=== PATIENT | female | born 1965 | race Caucasian/White ===

== ENCOUNTER 2017-08-01 19:25 | Emergency (ER) | payer OTHER ==
--- NOTE | 2017-08-01 20:46 | RAD REPORT ---
EXAM DESCRIPTION: CT - Head C Spine Mpr Wo Con - 08/01/2017 8:31 pm CLINICAL HISTORY: Head and neck injury status post fall. Head and neck pain COMPARISON: None. TECHNIQUE: Computed axial tomography of the head and cervical spine was obtained. Sagittal and coronal reconstruction was performed. All CT scans are performed using dose optimization technique as appropriate and may include automated exposure control or mA/KV adjustment according to patient size. FINDINGS: An intracranial bleed is not seen. The ventricles are normal in caliber. An extra-axial fl uid collection is not noted.Fluid within the visualized sinuses and mastoids is not seen A cervical fracture is not visualized. No dislocation is noted. IMPRESSION: No acute intracranial abnormality is seen. A cervical fracture is not visualized. If the patient continues to have symptoms to suggest intracra nial /spinal cord pathology then MRI would be recommended
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
[2017-08-01 21:13] VITALS: TEMP 98.2
[2017-08-01 21:14] VITALS: BP 120/93; O2SAT 100
== END 2017-08-01 21:07 | disposition home or self-care (01) ==
LOC: ER 19:25
DX: S06.0X0A Concussion without loss of consciousness, initial encounter (principal); W19.XXXA Unspecified fall, initial encounter; Y93.89 Activity, other specified; Y92.9 Unspecified place or not applicable; E06.3 Autoimmune thyroiditis
CPT/HCPCS: 70450; 72125; 99284

== ENCOUNTER 2017-09-11 08:37 | Emergency (ER) | payer OTHER ==
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
--- NOTE | 2017-09-11 09:04 | EDPHYS ---
Physician Documentation [facility] Name: Mary Bentley Age: 51 yrs Sex: Female : 1965 Arrival Date: 09/11/2017 Time: 08:40 Bed 14 Private MD: out of town, doctor ED Physician Bairon Moses HPI: 09/11 08:58 This 51 yrs old Female presents to ER via Ambulatory with complaints of rn Headache. 08:58 The patient complains of pain to the forehead. The patient describes the headache as rn electric. Onset: The symptoms/episode began/occurred 1 month(s) ago. Associated signs and symptoms: Pertinent negatives: fever, neck stiffness, rash, vision changes, vision loss, vomiting, weakness, vertigo. Severity of symptoms: At its worst the pain was mild, in the emergency department the pain is unchanged. The patient has experienced similar episodes in the past. REports had head injury 5 weeks ago, told had concussion, has been having daily electrical sensation to right forehead, is location where she hit her head, doesn't feel deep, hurts to touch location. No focal neurological complaints.. 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 - Social history:: Smoking status: Patient/guardian denies using tobacco. - Ebola Screening: : Patient denies exposure to infectious person Patient denies travel to an Ebola-affected area in the 21 days before illness onset. - Family history:: not pertinent. - Hospitalizations: : No recent hospitalization is reported. ROS: 08:58 Constitutional: Negative for fever, chills, and weight loss, Eyes: Negative for injury, rn pain, redness, and discharge, Neck: Negative for injury, pain, and swelling, Cardiovascular: Negative for chest pain, palpitations, and edema, Respiratory: Negative for shortness of breath, cough, wheezing, and pleuritic chest pain, Abdomen/GI: Negative for abdominal pain, nausea, vomiting, diarrhea, and constipation, MS/Extremity: Negative for injury and deformity, Skin: Negative for injury, rash, and discoloration, Neuro: Negative for weakness, and seizure. Exam: 08:58 Constitutional: This is a well developed, well nourished patient who is awake, alert, rn and in no acute distress. Head/Face: Normocephalic, atraumatic. Eyes: Pupils equal round and reactive to light, extra-ocular motions intact. Lids and lashes normal. Conjunctiva and sclera are non-icteric and not injected. Cornea within normal limits. Periorbital areas with no swelling, redness, or edema. ENT: No facial abnormalities Neck: Trachea midline, no thyromegaly or masses palpated, and no cervical lymphadenopathy. Supple, full range of motion without nuchal rigidity, or vertebral point tenderness. No Meningismus. Skin: Warm, dry with normal turgor. Normal color with no rashes, no lesions, and no evidence of cellulitis. MS/ Extremity: Pulses equal, no cyanosis. Neurovascular intact. Full, normal range of motion. Equal circumference. Neuro: Awake and alert, GCS 15, oriented to person, place, time, and situation. Cranial nerves II-XII grossly intact. Motor strength 5/5 in all extremities. Sensory grossly intact. Cerebellar exam normal. Normal gait. Vital Signs: 08:52 BP 125 / 90; Pulse 79; Resp 16; Temp 98.7(O); Pulse Ox 99% on R/A; Weight 84.82 kg; ss Height 5 ft. 1 in. (154.94 cm); Pain 7/10; 08:52 Body Mass Index 35.33 (84.82 kg, 154.94 cm) ss Ramakrishna Coma Score: 09:02 Eye Response: spontaneous(4). Verbal Response: oriented(5). Motor Response: obeys rn commands(6). Total: 15. MDM: 08:43 Patient medically screened. rn 08:58 Differential diagnosis: migraine, post-concussive syndrome, neuropraxia. Data reviewed: rn vital signs, nurses notes, old medical records, and as a result, I will discharge patient. 09:02 Counseling: I had a detailed discussion with the patient and/or guardian regarding: the rn historical points, exam findings, and any diagnostic results supporting the discharge/admit diagnosis, the need for outpatient follow up, to return to the emergency department if symptoms worsen or persist or if there are any questions or concerns that arise at home. Special discussion: I discussed with the patient/guardian in detail that at this point there is no indication for admission to the hospital. It is understood, however, that if the symptoms persist or worsen the patient needs to return immediately for re-evaluation. ED course: NOrmal neuro exam, no need for emergent imaging at this time, still within window of post-concussive syndrome, feels more like scalp hurts, electrical sensation, possible neuropraxia, will dc home with steroids and neuro f/u if persists. . Administered Medications: No medications were administered Disposition: 09/11/17 09:03 Discharged to Home. Impression: Postconcussional syndrome. - Condition is Stable. - Discharge Instructions: Post-Concussion Syndrome. - Prescriptions for Medrol (Genaro) 4 mg Oral Tablets, Dose Pack - take 1 tablet by ORAL route as directed - follow package instructions; 1 packet. - Medication Reconciliation Form, Thank You Letter, Antibiotic Education, Prescription Opioid Use, Work release form form. - Follow up: Wade Del Toro MD; When: As needed; Reason: Recheck today's complaints, Re-evaluation by your physician. - Problem is an ongoing problem. - Symptoms are unchanged. Signatures: Bairon Moses MD MD rn Smirch, Shelby, RN RN ss Barber, Rebecca, RN RN rb1 Corrections: (The following items were deleted from the chart) 09:13 09:03 09/11/2017 09:03 Discharged to Home. Impression: Postconcussional syndrome. rb1 Condition is Stable. Forms are Medication Reconciliation Form, Thank You Letter, Antibiotic Education, Prescription Opioid Use. Follow up: Wade Del Toro; When: As needed; Reason: Recheck today's complaints, Re-evaluation by your physician. Problem is an ongoing problem. Symptoms are unchanged. rn
[2017-09-11 09:17] VITALS: BP 125/90; TEMP 98.7; O2SAT 99
== END 2017-09-11 09:13 | disposition home or self-care (01) ==
LOC: ER 08:37
DX: F07.81 Postconcussional syndrome (principal); E06.3 Autoimmune thyroiditis
CPT/HCPCS: 99283

== ENCOUNTER 2018-08-07 22:09 | Emergency (ER) | payer OTHER ==
--- OUTSIDE RECORDS SUMMARY | 2018-08-07 22:11 | XMS REPORT | Clinical Summary ---
:1965 Author Organization [facility] Address [address] [place] [address] Care Team Providers Name Role Phone Chalino Heller MD Primary Care Provider Allergies No Known Allergies Medications Medication Sig Dispensed Refills Start Date End Date Status ARMOUR THYROID 30 mg TAKE 4 TABLETS BY 5 03/15/2016 Active tablet MOUTH ONCE A DAY Active Problems Problem Noted Date Chronic pain of right knee 11/14/2017 Old complete tear of anterior cruciate ligament of right knee 11/14/2017 Encounters Date Type Specialty Care Team Description 12/31/2017 Telephone Sports Medicine Alice Schneider MA 12/10/2017 Office Visit Sports Medicine Chalino Heller Chronic pain of right knee (Primary Dx); MD Joseluis Primary localized osteoarthrosis of right lower leg; Old complete tear of anterior cruciate ligament of right knee 12/05/2017 Telephone Sports Medicine Alice Schneider MA 11/23/2017 Office Visit Sports Medicine Chalino Heller Chronic pain of right knee MD Joseluis (Primary Dx) 11/23/2017 Telephone Sports Medicine Alex Johnson MA 11/14/2017 Office Visit Sports Medicine Chalino Heller Chronic pain of right knee (Primary Dx); MD Joseluis Old complete tear of anterior cruciate ligament of right knee; Post-traumatic osteoarthritis of right knee after 08/06/2017 Social History Tobacco Use Types Packs/Day Years Used Date Never Smoker Smokeless Tobacco: Never Used Alcohol Use Drinks/Week oz/Week Comments No Sex Assigned at Date Recorded Not on file Job Start Date Occupation Industry Not on file Not on file Not on file Travel History Travel Start Travel End No recent travel history available. Last Filed Vital Signs Vital Sign Reading Time Taken Blood Pressure 142/104 11/14/2017 2:12 PM CDT Pulse 81 11/14/2017 2:12 PM CDT Temperature - - Respiratory Rate 20 11/14/2017 2:12 PM CDT Oxygen Saturation - - Inhaled Oxygen Concentration - - Weight 86.6 kg (191 lb) 12/10/2017 2:10 PM CDT Height 154.9 cm (5' 1") 12/10/2017 2:10 PM CDT Body Mass Index 36.09 12/10/2017 2:10 PM CDT Plan of Treatment Health Maintenance Due Date Last Done Comments BREAST CANCER SCREENING 12/26/2013 COLON CANCER SCREENING 12/26/2013 SHINGLES VACCINES (#1) 12/26/2013 INFLUENZA VACCINE 10/03/2018 Procedures Procedure Name Priority Date/Time Associated Comments Diagnosis ID ARTHROCENTESIS Routine 11/23/2017 8:10 Chronic pain of Results for this ASPIR&/INJ MAJOR AM CDT right knee procedure are in JT/BURSA W/US the results section. XR KNEE 4+ VW RIGHT Routine 11/14/2017 3:31 Chronic pain of Results for this PM CDT right knee procedure are in Old complete tear the results of anterior section. cruciate ligament of right knee after 08/06/2017 Results Large Joint Arthrocentesis (11/23/2017 8:10 AM CDT) Narrative Performed At Chalino Heller MD 11/23/20178:35 AM Large Joint Arthrocentesis Consent given by: patient Site marked: site marked Timeout: Immediately prior to procedure a time out was called to verify the correct patient, procedure, equipment, lab support technician and site/side marked as required Supporting Documentation Indications: pain Procedure Details Preparation: Patient was prepped and draped in the usual sterile fashion Ultrasound guided: yes Location: knee - R knee Right side: Approach: lateral Right knee medications administered: 80 mg methylPREDNISolone acetate 40 mg/mL Patient tolerance: patient tolerated the procedure well with no immediate complications XR Knee 4+ Vw Right (11/14/2017 3:31 PM CDT) Specimen Narrative Performed At 4 view series of the right knee demonstrates grade 3 OA of the medial and [facility] lateral compartments, and grade 2 OA changes of the patellofemoral compartment. Performing Organization Address City/State/Zipcode Phone Number [facility] [address] [place] [address] after 08/06/2017 Advance Directives Patient has advance care planning documents on file. For more information, please contact:Raj [id number] [place] [address]
[2018-08-07] MEDS ORDERED: KETOROLAC 30 MG/ML INJ ONE (23:39)
[2018-08-07] MEDS ORDERED: CYCLOBENZAPRINE 10 MG TAB ONE (23:39)
--- NOTE | 2018-08-07 23:44 | EDPHYS ---
Physician Documentation [facility] Name: Mary Bentley Age: 52 yrs Sex: Female : 1965 Arrival Date: 08/07/2018 Time: 22:19 Bed 16 Private MD: ED Physician Lobito Canseco HPI: 08/08 01:55 This 52 yrs old Female presents to ER via Ambulatory with complaints of Neck tw4 Injury. 01:55 This 52 yrs old Female presents to ER via Ambulatory with complaints of Neck tw4 Injury. 01:55 The patient or guardian complains of pain, that is acute. The symptoms are located. tw4 Onset: The symptoms/episode began/occurred today. Context: The problem was sustained at home, The neck injury/problem resulted from a direct blow. Associated signs and symptoms: The patient has no apparent associated signs or symptoms. The pain does not radiate. The patient has not experienced similar symptoms in the past. 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 - Social history:: Smoking status: Patient/guardian denies using tobacco, Patient uses alcohol, occasionally. - Ebola Screening: : Patient negative for fever greater than or equal to 101.5 degrees Fahrenheit, and additional compatible Ebola Virus Disease symptoms Patient denies exposure to infectious person Patient denies travel to an Ebola-affected area in the 21 days before illness onset. ROS: 08/08 01:55 Constitutional: Negative for fever, chills, and weight loss, Eyes: Negative for injury, tw4 pain, redness, and discharge. Cardiovascular: Negative for chest pain, palpitations, and edema, Respiratory: Negative for shortness of breath, cough, wheezing, and pleuritic chest pain, Abdomen/GI: Negative for abdominal pain, nausea, vomiting, diarrhea, and constipation, Back: Negative for injury and pain, MS/Extremity: Negative for injury and deformity, Skin: Negative for injury, rash, and discoloration. Neck: Positive for injury or acute deformity, pain at rest, stiffness, Negative for mass. Exam: 01:55 Constitutional: This is a well developed, well nourished patient who is awake, alert, tw4 and in no acute distress. Head/Face: Normocephalic, atraumatic. Eyes: Pupils equal round and reactive to light, extra-ocular motions intact. Lids and lashes normal. Conjunctiva and sclera are non-icteric and not injected. Cornea within normal limits. Periorbital areas with no swelling, redness, or edema. Chest/axilla: Normal chest wall appearance and motion. Nontender with no deformity. No lesions are appreciated. Cardiovascular: Regular rate and rhythm with a normal S1 and S2. No gallops, murmurs, or rubs. Normal PMI, no JVD. No pulse deficits. Respiratory: Lungs have equal breath sounds bilaterally, clear to auscultation and percussion. No rales, rhonchi or wheezes noted. No increased work of breathing, no retractions or nasal flaring. 01:55 Abdomen/GI: Soft, non-tender, with normal bowel sounds. No distension or tympany. No guarding or rebound. No evidence of tenderness throughout. MS/ Extremity: Pulses equal, no cyanosis. Neurovascular intact. Full, normal range of motion. 01:55 Neck: External neck: tenderness, that is mild, of the left mid cervical area, right mid cervical area, left trapezius and right trapezius, C-spine: appears grossly normal. Vital Signs: 08/07 22:15 BP 130 / 96; Pulse 71; Resp 18; Temp 98.8(O); Pulse Ox 98% on R/A; Weight 90.72 kg (R); fc Height 5 ft. 1 in. (154.94 cm) (R); Pain 5/10; 23:38 Pulse 58; Resp 16 S; Pulse Ox 100% on R/A; jd3 23:55 BP 144 / 92; Pulse 63; Resp 16 S; Pulse Ox 99% on R/A; jd3 22:15 Body Mass Index 37.79 (90.72 kg, 154.94 cm) [place] Coma Score: 22:15 Eye Response: spontaneous(4). Verbal Response: oriented(5). Motor Response: obeys fc commands(6). Total: 15. Trauma Score (Adult): 22:15 Eye Response: spontaneous(1); Verbal Response: oriented(1); Motor Response: obeys fc commands(2); Systolic BP: > 89 mm Hg(4); Respiratory Rate: 10 to 29 per min(4); Ramakrishna Score: 15; Trauma Score: 12 MDM: 22:36 Patient medically screened. tw4 08/08 01:55 Data reviewed: vital signs, nurses notes. Data interpreted: Pulse oximetry: tw4 Interpretation: normal. Counseling: I had a detailed discussion with the patient and/or guardian regarding: the historical points, exam findings, and any diagnostic results supporting the discharge/admit diagnosis. Medication response: Toradol markedly relieved the patient's pain. Response to treatment: and as a result, I will discharge patient. Special discussion: I discussed with the patient/guardian in detail that at this point there is no indication for admission to the hospital. It is understood, however, that if the symptoms persist or worsen the patient needs to return immediately for re-evaluation. Administered Medications: 08/07 23:29 Drug: TORadol 60 mg Route: IM; Site: left gluteus; jd3 23:50 Follow up: Response: No adverse reaction jd3 23:29 Not Given (Other Intervention Used): Flexeril 15 mg PO once jd3 23:29 Drug: Flexeril 10 mg Route: PO; jd3 23:50 Follow up: Response: No adverse reaction jd3 Disposition: 08/07/18 23:43 Discharged to Home. Impression: Contusion of unspecified part of neck, Muscle spasm. - Condition is Stable. - Discharge Instructions: Neck Contusion, Cervical Sprain. - Prescriptions for Ibuprofen 800 mg Oral Tablet - take 1 tablet by ORAL route every 8 hours As needed take with food; 30 tablet. Cyclobenzaprine 10 mg Oral Tablet - take 1 tablet by ORAL route every 8 hours As needed; 30 tablet. - Medication Reconciliation Form, Thank You Letter, Antibiotic Education, Prescription Opioid Use form. - Follow up: Private Physician; When: Upon discharge from the Emergency Department; Reason: If symptoms return, Recheck today's complaints, Continuance of care. Signatures: Lenora Greenfield RN RN Wale Scott RN RN j Lobito Canseco MD MD tw4 Corrections: (The following items were deleted from the chart) 23:55 23:43 08/07/2018 23:43 Discharged to Home. Impression: Contusion of unspecified part of jd3 neck; Muscle spasm. Condition is Stable. Forms are Medication Reconciliation Form, Thank You Letter, Antibiotic Education, Prescription Opioid Use. Follow up: Private Physician; When: Upon discharge from the Emergency Department; Reason: If symptoms return, Recheck today's complaints, Continuance of care. tw4
--- NOTE | 2018-08-07 23:44 | ER ---
Nurse's Notes [facility] Name: Mary Bentley Age: 52 yrs Sex: Female : 1965 Arrival Date: 08/07/2018 Time: 22:19 Bed 16 Private MD: Diagnosis: Contusion of unspecified part of neck;Muscle spasm Presentation: 08/07 22:15 Presenting complaint: Patient states: that she was looking at some water on the ground fc that was leaking in her home and the ceiling fell in on her, hitting her in the neck. She is now light headed. Denies any LOC, nausea or photophobia. Care prior to arrival: None. Trauma event details: Injury occurred in the [facility], Injury occurred: at home. Injury occurred: August 07, 2018. 22:15 Acuity: SKIP 3 fc 22:15 Method Of Arrival: Ambulatory fc 22:15 Transition of care: patient was not received from another setting of care. Onset of fc symptoms was August 07, 2018. Risk Assessment: Do you want to hurt yourself or someone else? Patient reports no desire to harm self or others. Initial Sepsis Screen: Does the patient meet any 2 criteria? No. Patient's initial sepsis screen is negative. Does the patient have a suspected source of infection? No. Patient's initial sepsis screen is negative. 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 - Social history:: Smoking status: Patient/guardian denies using tobacco, Patient uses alcohol, occasionally. - Ebola Screening: : Patient negative for fever greater than or equal to 101.5 degrees Fahrenheit, and additional compatible Ebola Virus Disease symptoms Patient denies exposure to infectious person Patient denies travel to an Ebola-affected area in the 21 days before illness onset. Screenin:15 Abuse screen: Denies threats or abuse. Tuberculosis screening: No symptoms or risk fc factors identified. 22:36 Nutritional screening: No deficits noted. Fall Risk Ambulatory Aid- None/Bed Rest/Nurse jd3 Assist (0 pts). Gait- Normal/Bed Rest/Wheelchair (0 pts) Mental Status- Oriented to own ability (0 pts). Total Pyle Fall Scale indicates No Risk (0-24 pts). Assessment: 22:28 General: Appears in no apparent distress. uncomfortable, Behavior is calm, cooperative, jd3 appropriate for age. Pain: Complains of pain in head and back of neck Quality of pain is described as aching, pressure. Neuro: Level of Consciousness is awake, alert, obeys commands, Oriented to person, place, time, situation, Pupils are PERRLA, Reports dizziness. Cardiovascular: Capillary refill < 3 seconds Patient's skin is warm and dry. Respiratory: Airway is patent Respiratory effort is even, unlabored, Respiratory pattern is regular, symmetrical. GI: No signs and/or symptoms were reported involving the gastrointestinal system. : No signs and/or symptoms were reported regarding the genitourinary system. EENT: No signs and/or symptoms were reported regarding the EENT system. Derm: Skin is intact, Skin is dry, Skin is normal, Skin temperature is warm. Musculoskeletal: Circulation, motion, and sensation intact. Range of motion: intact in all extremities. 23:38 Reassessment: Patient appears in no apparent distress at this time. Patient and/or jd3 family updated on plan of care and expected duration. Pain level reassessed. Patient is alert, oriented x 3, equal unlabored respirations, skin warm/dry/pink. 23:54 Reassessment: Patient appears in no apparent distress at this time. Patient and/or jd3 family updated on plan of care and expected duration. Pain level reassessed. Patient is alert, oriented x 3, equal unlabored respirations, skin warm/dry/pink. Vital Signs: 22:15 BP 130 / 96; Pulse 71; Resp 18; Temp 98.8(O); Pulse Ox 98% on R/A; Weight 90.72 kg (R); fc Height 5 ft. 1 in. (154.94 cm) (R); Pain 5/10; 23:38 Pulse 58; Resp 16 S; Pulse Ox 100% on R/A; jd3 23:55 BP 144 / 92; Pulse 63; Resp 16 S; Pulse Ox 99% on R/A; jd3 22:15 Body Mass Index 37.79 (90.72 kg, 154.94 cm) Ramakrishna Coma Score: 22:15 Eye Response: spontaneous(4). Verbal Response: oriented(5). Motor Response: obeys fc commands(6). Total: 15. Trauma Score (Adult): 22:15 Eye Response: spontaneous(1); Verbal Response: oriented(1); Motor Response: obeys fc commands(2); Systolic BP: > 89 mm Hg(4); Respiratory Rate: 10 to 29 per min(4); [place] Score: 15; Trauma Score: 12 ED Course: 22:15 Patient has correct armband on for positive identification. Bed in low position. Call fc light in reach. 22:15 Arm band placed on Patient placed in an exam room, on a stretcher. fc 22:15 Patient maintains SpO2 saturation greater than 95% on room air. fc 22:19 Patient arrived in ED. mr 22:22 Wale Scott RN is Primary Nurse. jd3 22:29 Triage completed. 22:36 Lobito Canseco MD is Attending Physician. tw4 23:55 No provider procedures requiring assistance completed. Patient did not have IV access jd3 during this emergency room visit. Administered Medications: 23:29 Drug: TORadol 60 mg Route: IM; Site: left gluteus; jd3 23:50 Follow up: Response: No adverse reaction jd3 23:29 Not Given (Other Intervention Used): Flexeril 15 mg PO once jd3 23:29 Drug: Flexeril 10 mg Route: PO; jd3 23:50 Follow up: Response: No adverse reaction jd3 Outcome: 23:43 Discharge ordered by . tw4 23:55 Discharged to home ambulatory, with family. jd3 23:55 Condition: stable 23:55 Discharge instructions given to patient, family, Instructed on discharge instructions, follow up and referral plans. medication usage, Demonstrated understanding of instructions, follow-up care, medications, Prescriptions given X 2. 23:55 Patient left the ED. jd3 Signatures: GutierrezShannan mr GreenfieldLenora RN RN Wale Scott RN RN [facility] Lobito Canseco MD MD tw4 Corrections: (The following items were deleted from the chart) 22:39 22:36 BP 118 / 70; Pulse 83bpm; Resp 15bpm; Spontaneous; Pulse Ox 99% RA; jd3 jd3 23:39 23:38 BP 128 / 92; Pulse 58bpm; Pulse Ox 100%; jd3 jd3 23:55 23:38 BP 128 / 88; Pulse 58bpm; Resp 16bpm; Spontaneous; Pulse Ox 100% RA; jd3 jd3
[2018-08-08 02:34] VITALS: TEMP 98.8
[2018-08-08 02:37] VITALS: BP 144/92; O2SAT 99
== END 2018-08-07 23:55 | disposition home or self-care (01) ==
LOC: ER 22:09
DX: S10.93XA Contusion of unspecified part of neck, initial encounter (principal); M62.838 Other muscle spasm; E06.3 Autoimmune thyroiditis
CPT/HCPCS: 96372; 99284

== ENCOUNTER 2020-08-26 14:39 | Emergency (ER) | payer OTHER, SELFPAY ==
[2020-08-26 17:27] LABS: Absolute Lymphocytes (CBC) 3.4 K/uL (0.7-4.9); Hematocrit 39.3 % (36.0-45.0); Lymphocytes % 50.7 % (15.3-44.8); MPV 7.9 fL (7.6-11.3); RBC Red Blood Cell Count 4.37 M/uL (3.86-4.86)
[2020-08-26 17:41] LABS: Albumin 3.4 g/dL (3.4-5.0); Bilirubin Direct 0.1 mg/dL (0-0.2); Bilirubin Total 0.5 mg/dL (0.2-1.0); Potassium 3.4 mmol/L (3.5-5.1); Protein, Total 6.9 g/dL (6.4-8.2)
--- NOTE | 2020-08-26 18:44 | RAD REPORT ---
EXAM DESCRIPTION: CT - Abdomen Pelvis W Contrast - 08/26/2020 6:17 pm CLINICAL HISTORY: abdominal pain COMPARISON: Abdomen Pelvis W Contrast dated 09/03/2015 TECHNIQUE: Biphasic, helical CT imaging of the abdomen and pelvis was performed following 100 ml non -ionic IV contrast. No oral contrast administered. All CT scans are performed using dose optimization technique as appropriate and may include automated exposure control or mA/KV adjustment according to patient size. FINDINGS: No suspicious findings in the lung bases. The liver, spleen, and pancreas show no suspicious findings. Cholecystectomy clips are present. No bi liary tree dilatation. Symmetric renal function is seen with no hydronephrosis or suspicious renal mass. No pyelonephritis o r acute parenchymal process. No bladder abnormalities. No adrenal abnormalities. Uterus and ovaries s how no suspicious findings. No dilated bowel loops or bowel wall thickening. No appendicitis findings. There is prominent sigmoid diverticulosis without diverticulitis. A few small mesenteric lymph nodes are present. No free air, free fluid or inflammatory stranding. No hernia, mass or bulky lymphadenopathy. No suspicious bony findings. IMPRESSION: Contrast enhanced CT abdomen and pelvis showing no acute or emergent finding.
--- NOTE | 2020-08-26 19:50 | ER ---
Nurse's Notes [facility] Name: Mary Bentley Age: 54 yrs Sex: Female : 1965 Arrival Date: 08/26/2020 Time: 14:43 Bed 25 Private MD: Diagnosis: Gastrointestinal hemorrhage, unspecified Presentation: 08/26 14:58 Chief complaint: Patient states: "I am having some rectal bleeding with bowel moments. jd3 I am started feeling fatigue so I figured I needed to come in and get seen. no pain.". Coronavirus screen: At this time, the client does not indicate any symptoms associated with coronavirus-19. Ebola Screen: Patient negative for fever greater than or equal to 101.5 degrees Fahrenheit, and additional compatible Ebola Virus Disease symptoms. Initial Sepsis Screen: Does the patient meet any 2 criteria? No. Patient's initial sepsis screen is negative. Does the patient have a suspected source of infection? No. Patient's initial sepsis screen is negative. Risk Assessment: Do you want to hurt yourself or someone else? Patient reports no desire to harm self or others. Onset of symptoms was August 26, 2020. 14:58 Method Of Arrival: Ambulatory jd3 14:58 Acuity: SKPI 3 jd3 Historical: - Allergies: 15:00 No Known Allergies; jd3 - Home Meds: 15:00 [place] Thyroid Oral daily [Active]; jd3 - PMHx: 15:00 Hashimotos; jd3 - PSHx: 15:00 spinal; knee; gastric sleeve; Cholecystectomy; jd3 - Immunization history:: Adult Immunizations. - Social history:: Smoking status: Patient/guardian denies using tobacco, but has a distant history of tobacco abuse. Screenin:33 Abuse screen: Denies threats or abuse. Denies injuries from another. Nutritional ld1 screening: No deficits noted. Tuberculosis screening: No symptoms or risk factors identified. Fall Risk None identified. Assessment: 16:33 General: Appears in no apparent distress. comfortable, Behavior is calm, cooperative, ld1 appropriate for age. Pain: Denies pain. Neuro: Level of Consciousness is awake, alert, obeys commands, Oriented to person, place, time, situation, Appropriate for age. Cardiovascular: Capillary refill < 3 seconds Patient's skin is warm and dry. Respiratory: Airway is patent Respiratory effort is even, unlabored, Respiratory pattern is regular, symmetrical. GI: Abdomen is round non-distended, Bowel sounds present X 4 quads. Abd is soft Abd is non tender Reports rectal bleeding, bloody stool. : No signs and/or symptoms were reported regarding the genitourinary system. EENT: No signs and/or symptoms were reported regarding the EENT system. Derm: No signs and/or symptoms reported regarding the dermatologic system. Musculoskeletal: No signs and/or symptoms reported regarding the musculoskeletal system. 17:30 Reassessment: Patient appears in no apparent distress at this time. Patient denies pain ld1 at this time. 18:30 Reassessment: Patient appears in no apparent distress at this time. Patient is alert, ld1 oriented x 3, equal unlabored respirations, skin warm/dry/pink. 19:44 Reassessment: Patient appears in no apparent distress at this time. Patient and/or ld1 family updated on plan of care and expected duration. Pain level reassessed. Patient denies pain at this time. 20:04 Reassessment:. ld1 Vital Signs: 15:00 BP 120 / 91; Pulse 72; Resp 16 S; Temp 97.2(TE); Pulse Ox 99% on R/A; Weight 73.03 kg jd3 (R); Height 5 ft. 1 in. (154.94 cm) (R); Pain 2/10; 16:33 BP 127 / 79; Pulse 78; Resp 18; Pulse Ox 97% on R/A; ld1 17:50 BP 130 / 82; Pulse 79; Resp 16; Pulse Ox 100% ; ld1 18:45 BP 134 / 80; Pulse 74; Resp 18; Pulse Ox 100% ; ld1 19:45 BP 128 / 76; Pulse 70; Resp 18; Pulse Ox 100% ; ld1 15:00 Body Mass Index 30.42 (73.03 kg, 154.94 cm) j ED Course: 14:43 Patient arrived in ED. mr 14:59 Triage completed. jd3 15:01 Arm band placed on. jd3 16:09 Telly Mcleod PA is PHCP. [facility] 16:09 Jeevan Herbert MD is Attending Physician. [facility] 16:33 Zandra Kyle, JOSEFA is Primary Nurse. ld1 16:33 Patient has correct armband on for positive identification. Placed in gown. Bed in low ld1 position. Side rails up X2. Pulse ox on. NIBP on. Door closed. Noise minimized. Warm blanket given. 16:33 No provider procedures requiring assistance completed. ld1 16:45 Inserted saline lock: 20 gauge in right antecubital area, using aseptic technique. ld1 Blood collected. 18:16 CT Abd/Pelvis - IV Contrast Only In Process Unspecified. EDMS 19:48 Maty Munoz MD is Referral Physician. [facility] 20:09 IV discontinued, intact, bleeding controlled, No redness/swelling at site. ld1 Administered Medications: No medications were administered Outcome: 19:49 Discharge ordered by . devon 20:09 Discharged to home ambulatory. ld1 20:09 Condition: stable 20:09 Discharge instructions given to patient, family, Instructed on discharge instructions, follow up and referral plans. Demonstrated understanding of instructions, follow-up care. 20:09 Patient left the ED. ld1 Signatures: Dispatcher [employer] EDMS Telly Mcleod PA PA jmm Rivera, Mary mr ScottWale RN RN jZandra Ashford RN RN ld1 Corrections: (The following items were deleted from the chart) 15:02 15:00 Pulse 72bpm; Resp 16bpm; Spontaneous; Pulse Ox 99% RA; Temp 97.2F Temporal; 73.03 jd3 kg Reported; Height 5 ft. 1 in. Reported; BMI: 30.4; Pain 2/10; jd3
--- NOTE | 2020-08-26 19:50 | EDPHYS ---
Physician Documentation [facility] Name: Mary Bentley Age: 54 yrs Sex: Female : 1965 Arrival Date: 08/26/2020 Time: 14:43 Bed 25 Private MD: ED Physician Jeevan Herbert HPI: 08/26 16:14 This 54 yrs old Female presents to ER via Ambulatory with complaints of jmm Rectal Bleeding, fatigue. 16:14 The patient presents to the emergency department with bleeding from the rectum/anus. jmm Onset: The symptoms/episode began/occurred gradually. Modifying factors: The symptoms are alleviated by nothing, The symptoms are aggravated by nothing. This is a 54 year old with a history of hashimotos, gastric sleeve that presents to the ED with complaints of fatigue and rectal bleeding. Denies abdominal pain, vomiting. . Historical: - Allergies: 15:00 No Known Allergies; jd3 - Home Meds: 15:00 [place] Thyroid Oral daily [Active]; jd3 - PMHx: 15:00 Hashimotos; jd3 - PSHx: 15:00 spinal; knee; gastric sleeve; Cholecystectomy; jd3 - Immunization history:: Adult Immunizations. - Social history:: Smoking status: Patient/guardian denies using tobacco, but has a distant history of tobacco abuse. ROS: 16:14 Constitutional: Negative for fever, chills, and weight loss, Cardiovascular: Negative jmm for chest pain, palpitations, and edema, Respiratory: Negative for shortness of breath, cough, wheezing, and pleuritic chest pain. 16:14 Abdomen/GI: Positive for rectal bleeding. 16:14 All other systems are negative. Exam: 16:14 Constitutional: This is a well developed, well nourished patient who is awake, alert, jmm and in no acute distress. Head/Face: atraumatic. Eyes: EOMI, no conjunctival erythema appreciated ENT: Moist Mucus Membranes Neck: Trachea midline, Supple Chest/axilla: Normal chest wall appearance and motion. Cardiovascular: Regular rate and rhythm. No edema appreciated Respiratory: Normal respirations, no respiratory distress appreciated Abdomen/GI: Non distended, soft Back: Normal ROM Skin: General appearance color normal MS/ Extremity: Moves all extremities, no obvious deformities appreciated, no edema noted to the lower extremities Neuro: Awake and alert, normal gait Psych: Behavior is normal, Mood is normal, Patient is cooperative and pleasant Vital Signs: 15:00 BP 120 / 91; Pulse 72; Resp 16 S; Temp 97.2(TE); Pulse Ox 99% on R/A; Weight 73.03 kg jd3 (R); Height 5 ft. 1 in. (154.94 cm) (R); Pain 2/10; 16:33 BP 127 / 79; Pulse 78; Resp 18; Pulse Ox 97% on R/A; ld1 17:50 BP 130 / 82; Pulse 79; Resp 16; Pulse Ox 100% ; ld1 18:45 BP 134 / 80; Pulse 74; Resp 18; Pulse Ox 100% ; ld1 19:45 BP 128 / 76; Pulse 70; Resp 18; Pulse Ox 100% ; ld1 15:00 Body Mass Index 30.42 (73.03 kg, 154.94 cm) jd3 MDM: 16:14 Patient medically screened. [facility] 19:48 Data reviewed: vital signs, nurses notes. Counseling: I had a detailed discussion with shahab the patient and/or guardian regarding: the historical points, exam findings, and any diagnostic results supporting the discharge/admit diagnosis, lab results, radiology results, the need for outpatient follow up, to return to the emergency department if symptoms worsen or persist or if there are any questions or concerns that arise at home. 08/26 16:22 Order name: Basic Metabolic Panel; Complete Time: 17:47 [facility] 08/26 16:22 Order name: CBC with Diff; Complete Time: 17:37 [facility] 08/26 16:22 Order name: Hepatic Function; Complete Time: 17:47 [facility] 08/26 16:22 Order name: Lipase; Complete Time: 17:47 [facility] 08/26 16:22 Order name: Type And Screen; Complete Time: 19:30 [facility] 08/26 16:22 Order name: CT Abd/Pelvis - IV Contrast Only; Complete Time: 18:49 [facility] 08/26 16:22 Order name: IV Saline Lock; Complete Time: 18:13 [facility] 08/26 16:22 Order name: Labs collected and sent; Complete Time: 17:05 [facility] Administered Medications: No medications were administered Disposition: 08/26/20 19:49 Discharged to Home. Impression: Gastrointestinal hemorrhage, unspecified. - Condition is Stable. - Discharge Instructions: Gastrointestinal Bleeding. - Medication Reconciliation Form, Thank You Letter, Antibiotic Education, Prescription Opioid Use form. - Follow up: Maty Munoz MD; When: 2 - 3 days; Reason: Recheck today's complaints, Continuance of care, Re-evaluation by your physician. Signatures: Dispatcher [employer] EDMS Telly Mcleod PA PA jmm Davies, Jonathon, RN RN jd3 Zandra Kyle RN RN ld1 Corrections: (The following items were deleted from the chart) 20:09 19:49 08/26/2020 19:49 Discharged to Home. Impression: Gastrointestinal hemorrhage, ld1 unspecified. Condition is Stable. Forms are Medication Reconciliation Form, Thank You Letter, Antibiotic Education, Prescription Opioid Use. Follow up: Maty Munoz; When: 2 - 3 days; Reason: Recheck today's complaints, Continuance of care, Re-evaluation by your physician. shahab
[2020-08-26 21:16] VITALS: BP 152/73; TEMP 98.7; O2SAT 99
== END 2020-08-26 20:09 | disposition home or self-care (01) ==
LOC: ER 14:39
DX: K62.5 Hemorrhage of anus and rectum (principal); E06.3 Autoimmune thyroiditis
CPT/HCPCS: 36415; 74177; 80048; 80076; 83690; 85025; 86850; 86900; 86901; Q9967

== ENCOUNTER 2024-05-14 18:27 | Emergency (ER) | payer OTHER ==
[2024-05-14 19:24] LABS: Absolute Basophils 0.1 K/uL (0-0.5); Absolute Lymphocytes (CBC) 2.2 K/uL (0.7-4.9); Absolute Monocytes 0.4 K/uL (0.1-1.3); Absolute Neutrophil 2.7 K/uL (1.8-8.0); Basophils % 1.4 % (0-1.3); Eosinophils % 0.7 % (0-4.4); Hematocrit 37.2 % (36.0-45.0); Lymphocytes % 41.5 % (15.3-44.8); MCH 26.2 pg (27.0-35.0); MCHC 32.3 g/dL (32.0-36.0); MCV 80.9 fL (80-100); MPV 7.1 fL (7.6-11.3); Monocytes % 6.6 % (3.3-12.3); Neutrophils % 49.8 % (41.7-73.7); Nucleated Red Blood Cells % 0.1 % (0-0); Platelets 330 thou/uL (152-406); RBC Red Blood Cell Count 4.59 M/uL (3.86-4.86); Red Cell Distribution Width 16.3 % (12.1-15.2)
[2024-05-14 19:45] LABS: Albumin 3.5 g/dL (3.4-5.0); Albumin/Globulin Ratio 0.9 (1.1-1.8); Anion Gap 7.2 mEq/L (5.0-15.0); Bilirubin Total 0.5 mg/dL (0.2-1.0); Globulin 3.8 g/dL (2.3-3.5); Protein, Total 7.3 g/dL (6.4-8.2)
[2024-05-14 19:46] LABS: Potassium 4.2 mEq/L (3.5-5.1)
--- NOTE | 2024-05-14 20:07 | EDPHYS ---
Physician Documentation [facility] Name: Mary Bentley Age: 58 yrs Sex: Female : 1965 Arrival Date: 05/14/2024 Time: 18:27 Bed 7 Private MD: ED Physician Adolfo Lehman HPI: 05/14 18:49 This 58 yrs old Female presents to ER via Ambulatory with complaints of Rectal kb Bleeding, Hemorrhoids. 18:49 Pt is a 58 year old female who presents for bleeding hemorrhoid. States she has had the kb hemorrhoid for a long time and it bleeds intermittently, but today it bled more than normal and "freaked her out.". Historical: - Allergies: 18:45 No Known Drug Allergies; ph - Home Meds: 18:45 [place] Thyroid Oral daily [Active]; ph - PMHx: 18:45 Hashimotos; ph - Immunization history:: Adult Immunizations unknown. - Infectious Disease History:: Denies. - Social history:: Smoking status: Patient denies any tobacco usage or history of. ROS: 18:48 Constitutional: As per HPI kb Exam: 18:48 Constitutional: This is a well developed, well nourished patient who is awake, alert, kb and in no acute distress. Head/Face: Normocephalic, atraumatic. ENT: Moist Mucous membranes Cardiovascular: Regular rate Respiratory: Respirations even and unlabored. No increased work of breathing. Talking in full sentences Abdomen/GI: Soft, non-tender. No distention Skin: Warm, dry with normal turgor. Normal color. MS/ Extremity: Pulses equal, no cyanosis. Neurovascular intact. Full, normal range of motion. Neuro: Awake and alert, GCS 15, oriented to person, place, time, and situation. 20:05 : Rectal exam: hemorrhoid(s), external, inflammed, are present, no active bleeding, kb Vital Signs: 18:44 BP 147 / 100; Pulse 68; Resp 18; Temp 97.6; Pulse Ox 100% on R/A; Weight 66.68 kg; ph Height 5 ft. 1 in. ; 20:15 BP 136 / 81; Pulse 78; Resp 17; Temp 97.6; Pulse Ox 100% ; Pain 0/10; bm8 18:44 Body Mass Index 27.78 (66.68 kg, 154.94 cm) ph 20:15 Pain Scale: Adult bm8 Ramakrishna Coma Score: 20:15 Eye Response: spontaneous(4). Motor Response: obeys commands(6). Verbal Response: bm8 oriented(5). Total: 15. MDM: 18:33 Medical Screening Exam initiated kb 18:48 Differential diagnosis: hemorrhoids, fissure, anemia. Data reviewed: vital signs, kb nurses notes. 20:06 Historians other than the Patient: Spouse/Significant Other: spouse. Counseling: I had kb a detailed discussion with the patient and/or guardian regarding the historical points, exam findings, and any diagnostic results supporting the discharge/admit diagnosis, lab results, the need for outpatient follow up, a family practitioner, to return to the emergency department if symptoms worsen or persist or if there are any questions or concerns that arise at home. 05/14 18:48 Order name: CBC with Diff; Complete Time: 19:37 kb 05/14 18:48 Order name: CMP; Complete Time: 19:54 kb 05/14 18:48 Order name: IV Saline Lock; Complete Time: 19:14 kb 05/14 18:48 Order name: Labs collected and sent; Complete Time: 19:14 kb Administered Medications: No medications were administered Disposition: 21:05 Co-signature as Attending Physician, Adolfo Lehman MD I reviewed the patient's care rt provided by the Advanced Practice Provider and agree with the diagnosis and treatment plan. Disposition Summary: 05/14/24 20:06 Discharge Ordered Notes: Location: Home kb Condition: Stable kb Diagnosis - Other hemorrhoids kb Followup: kb - With: Emergency Department - When: As needed - Reason: Worsening of condition Followup: kb - With: Private Physician - When: 2 - 3 days - Reason: Recheck today's complaints, Continuance of care, Re-evaluation by your physician Discharge Instructions: - Discharge Summary Sheet kb - Hemorrhoids, [id number] kb Forms: - Medication Reconciliation Form kb - Antibiotic Education kb - Prescription Opioid Use kb - Patient Portal Instructions kb - Leadership Thank You Letter kb Prescriptions: - Anusol-HC 2.5 % Topical cream with perineal applicator - apply 1 application RECTAL route 3 to 4 times per day as needed for kb hemorrhoids; 1 unit; Refills: 0, Product Selection Permitted Signatures: Dispatcher Meniga Miranda Epps, BARREL BUILDER-C Freya Ornelas, RN RN ph Adolfo Lehman MD MD rt
--- NOTE | 2024-05-14 20:07 | ER ---
Nurse's Notes [facility] Name: Mary Bentley Age: 58 yrs Sex: Female : 1965 Arrival Date: 05/14/2024 Time: 18:27 Bed 7 Private MD: Diagnosis: Other hemorrhoids Presentation: 05/14 18:44 Chief complaint: Patient states: " I have hemorrhoids and today they started bleeding ph pretty bad.". Coronavirus screen: Vaccine status:. Ebola Screen: No symptoms or risks identified at this time. Initial Sepsis Screen: Does the patient meet any 2 criteria? No. Patient's initial sepsis screen is negative. Does the patient have a suspected source of infection? No. Patient's initial sepsis screen is negative. Risk Assessment: Do you want to hurt yourself or someone else? Patient reports no desire to harm self or others. Onset of symptoms was May 14, 2024. 18:44 Method Of Arrival: Ambulatory ph 18:44 Acuity: SKIP 3 ph Historical: - Allergies: 18:45 No Known Drug Allergies; ph - Home Meds: 18:45 [place] Thyroid Oral daily [Active]; ph - PMHx: 18:45 Hashimotos; ph - Immunization history:: Adult Immunizations unknown. - Infectious Disease History:: Denies. - Social history:: Smoking status: Patient denies any tobacco usage or history of. Screenin:20 [facility] ED Fall Risk Assessment (Adult) History of falling in the last 3 months, cm10 including since admission No falls in past 3 months (0 pts) Confusion or Disorientation No (0 pts) Intoxicated or Sedated No (0 pts) Impaired Gait No (0 pts) Mobility Assist Device Used No (0 pt) Altered Elimination No (0 pt) Score/Fall Risk Level 0 - 2 = Low Risk Oriented to surroundings, Maintained a safe environment, Hourly rounding (assess needs \\T\\ fall precautionary measures) done. Abuse screen: Denies threats or abuse. Denies injuries from another. Nutritional screening: No deficits noted. Tuberculosis screening: No symptoms or risk factors identified. Assessment: 19:19 General: Appears in no apparent distress. comfortable, Behavior is calm, cooperative, cm10 appropriate for age. Pain: Denies pain. Neuro: No deficits noted. Level of Consciousness is awake, alert, obeys commands, Oriented to person, place, time, situation, Appropriate for age. Respiratory: No deficits noted. Airway is patent Respiratory effort is even, unlabored, Respiratory pattern is regular, symmetrical. GI: Reports rectal bleeding, hemorrhoids. 20:15 Reassessment: Patient appears in no apparent distress at this time. Patient and/or bm8 family updated on plan of care and expected duration. Pain level reassessed. Patient is alert, oriented x 3, equal unlabored respirations, skin warm/dry/pink. Patient states feeling better. Patient states symptoms have improved. Vital Signs: 18:44 BP 147 / 100; Pulse 68; Resp 18; Temp 97.6; Pulse Ox 100% on R/A; Weight 66.68 kg; ph Height 5 ft. 1 in. ; 20:15 BP 136 / 81; Pulse 78; Resp 17; Temp 97.6; Pulse Ox 100% ; Pain 0/10; bm8 18:44 Body Mass Index 27.78 (66.68 kg, 154.94 cm) ph 20:15 Pain Scale: Adult bm8 Ramakrishna Coma Score: 20:15 Eye Response: spontaneous(4). Motor Response: obeys commands(6). Verbal Response: bm8 oriented(5). Total: 15. ED Course: 18:29 Patient arrived in ED. im 18:33 Miranda Delarosa FNP-C [facility]. kb 18:33 Adolfo Lehman MD is Attending Physician. kb 18:45 Triage completed. ph 18:45 Arm band placed on. ph 19:14 CBC with Diff Sent. vk 19:14 CMP Sent. vk 19:14 Inserted saline lock: 20 gauge in left. vk 19:15 Michelle Poole, RN is Primary Nurse. cm10 19:15 Initial lab(s) drawn, by me, sent to lab. vk 19:19 Patient has correct armband on for positive identification. Placed in gown. Bed in low cm10 position. Call light in reach. Side rails up X2. 20:15 Provided Education on: post er care, follow up with GI. bm8 20:15 No provider procedures requiring assistance completed. IV discontinued, intact, bm8 bleeding controlled, No redness/swelling at site. Pressure dressing applied. Administered Medications: No medications were administered Medication: 20:15 VIS not applicable for this client. bm8 Outcome: 20:06 Discharge ordered by . roberta 20:15 Discharged to home ambulatory, with family, bm8 20:15 Condition: stable 20:15 Discharge instructions given to patient, family, Instructed on discharge instructions, follow up and referral plans. safety practices, Demonstrated understanding of instructions, follow-up care, medications, Prescriptions given X 1, 20:16 Patient left the ED. bm8 Signatures: Miranda Delarosa, REINA-Jose HUANG-Freya Keller, RN RN Zhanna Mccormick Clarissa, RN RN cm10 Richelle Celis Brad RN RN bm8
[2024-05-14 20:45] VITALS: TEMP 97.6; O2SAT 100
[2024-05-14 20:51] VITALS: BP 136/81
== END 2024-05-14 20:16 | disposition home or self-care (01) ==
LOC: ER 18:27
DX: K64.8 Other hemorrhoids (principal)
CPT/HCPCS: 36415; 80053; 85025; 99284

== ENCOUNTER 2024-12-18 20:34 | Emergency (ER) | payer OTHER ==
[2024-12-18 21:22] LABS: Absolute Lymphocytes (CBC) 2.1 K/uL (0.7-4.9); Hematocrit 38.5 % (36.0-45.0); Hemoglobin 12.6 g/dL (12.0-15.0); MCH 28.1 pg (27.0-35.0); MCHC 32.8 g/dL (32.0-36.0); MCV 85.8 fL (80-100); MPV 6.9 fL (7.6-11.3); Nucleated RBC Absolute Count 0.0 (0-0); Nucleated Red Blood Cells % 0.1 % (0-0); RBC Red Blood Cell Count 4.49 M/uL (3.86-4.86); White Blood Count 4.10 thou/uL (4.3-10.9)
--- NOTE | 2024-12-18 21:25 | RAD REPORT ---
EXAMINATION: ONE VIEW CHEST XR CLINICAL INDICATION: MALAISE TECHNIQUE: Frontal chest projection is submitted. Examination is limited by patient positioning and t echnique. COMPARISON: 09/05/2015 FINDINGS: The lungs are well inflated and clear. The heart is upper limit of normal in size. No displaced fract ures identified. IMPRESSION: No acute intrathoracic abnormalities.
[2024-12-18 21:31] LABS: PT Prothrombin Time 11.5 SECONDS (10-13.0); PTT, Activated Partial Thromb 35.0 SECONDS (27.2-37.4); Protime INR 1.02
[2024-12-18 21:39] LABS: Anion Gap 5.7 mEq/L (5.0-15.0); BUN Blood Urea Nitrogen 14.0 mg/dL (7-18); Glucose Level 107.0 mg/dL (74-106); Potassium 3.7 mEq/L (3.5-5.1); Troponin High Sensitivity 4.0 pg/mL (<58.9)
--- NOTE | 2024-12-18 22:14 | RAD REPORT ---
EXAM: CT brain without contrast HISTORY: WEAKNESS COMPARISON: 12/16/2021 TECHNIQUE: Multiple contiguous axial images were obtained and a CT of the brain without contrast. Sag ittal and coronal reformats were performed. One or more of the following dose reduction techniques were used: Automated exposure control, adjust ment of the mA and/or kV according to patient size, and/or iterative reconstruction. FINDINGS: No evidence of hydrocephalus, intracranial hemorrhage, or extra-axial fluid collection. The brain is normal in morphology. No evidence of midline shift or areas of brain edema. The calvarium is intact. The visualized paranasal sinuses and mastoid air cells are essentially clear . IMPRESSION: No evidence of acute intracranial abnormality.
--- NOTE | 2024-12-18 22:15 | RAD REPORT ---
EXAMINATION: CTA HEAD CLINICAL INDICATION: WEAKNESS TECHNIQUE: Axial CT images were obtained through the head after intravenous contrast utilizing angiog raphic protocol with 3D post-processing (maximum intensity projection images, volume rendered images and/or shaded surface rendered images). One or more of the following dose reduction technique s were used: Automated exposure control, adjustment of the mA and/or kV according to patient size, and/or iterative reconstruction. Unless otherwise specified, incidental findings do not require dedic ated imaging follow-up. COMPARISON: No prior exam. FINDINGS: ICA: The petrous, cavernous, and supraclinoid segments of the bilateral internal carotid arteries are normal. The ophthalmic artery origins are visualized and normal. The posterior communicating arteries are patent. SUZY: Anterior cerebral arteries are normal bilaterally. The anterior communicating artery is patent. MCA: Middle cerebral arteries are normal bilaterally. TUNNEL KILN FIRER: Posterior cerebral arteries are normal bilaterally. Vertebrobasilar: The vertebral arteries are patent. The basilar artery is normal in appearance. 3D images confirm these findings. IMPRESSION: No significant flow abnormality is identified.
--- NOTE | 2024-12-18 22:17 | RAD REPORT ---
EXAMINATION: CTA NECK CLINICAL INDICATION: weakness TECHNIQUE: Axial CT images were obtained from the aortic arch to the skull base after intravenous con trast utilizing angiographic protocol with 3D post-processing (maximum intensity projection images, volume rendered images and/or shaded surface rendered images). One or more of the following dose redu ction techniques were used: Automated exposure control, adjustment of the mA and/or kV according to patient size, and/or iterative reconstruction. Unless otherwise specified, incidental findings do not require dedicated imaging follow-up. COMPARISON: No prior exam. FINDINGS: AORTA: The imaged aortic arch is normal. CCA: The common carotid arteries are patent and normal in caliber. ICA/ECA: Bilateral internal and external carotid arteries are patent. There is no significant interna l carotid artery stenosis. VERTEBRAL: The cervical vertebral arteries are patent. The vertebral arteries are codominant. SOFT TISSUE: No significant neck soft tissue abnormalities. The visualized lung apices are clear. Mod erate lower cervical spondylosis. 3D images confirm these findings. IMPRESSION: No significant flow abnormality of the neck vessels is identified. NASCET criteria used. Mild 0-49% stenosis Moderate 50-69% stenosis Severe 70-99% stenosis
--- NOTE | 2024-12-18 22:27 | EDPHYS ---
Physician Documentation [facility] Name: Mary Bentley Age: 58 yrs Sex: Female : 1965 Arrival Date: 12/18/2024 Time: 20:34 Bed 3 Private MD: ED Physician Jaime Felix HPI: 12/18 22:58 This 58 yrs old Female presents to ER via Ambulatory with complaints of Headache, tt7 Weakness - left side. 12/19 00:04 Well-appearing 58-year-old female with 2 days of headache, she went to an urgent care tt7 and reported that on neurologic exam she had some weakness to her left lower extremity, she reports her symptoms been ongoing for 2 days, she has had migraine headaches in the past but not recently. 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 - Infectious Disease History:: Denies. - Social history:: Smoking status: Patient denies any tobacco usage or history of. ROS: 20:57 Constitutional: negative for fever. Cardiovascular: negative for chest pain. tt7 Respiratory: negative for shortness of breath. Abdomen/GI: negative for abdominal pain, nausea, vomiting, diarrhea. MS/Extremity: negative for injury and deformity. Skin: negative for rash. 20:57 Neuro: Positive for headache, Exam: 22:04 Constitutional: vital signs reviewed, well appearing. Head/Face: normocephalic, tt7 atraumatic. Eyes: no conjunctival injection, anicteric sclerae. ENT: mucus membranes moist. Neck: trachea midline, no JVD, no meningismus. Chest/axilla: normal chest wall appearance and motion, nontender, no crepitus. Cardiovascular: regular rate and rhythm, no murmurs, no rubs, no lower extremity edema. Respiratory: normal respiratory effort, no accessory muscle use, lungs CTAB. Abdomen/GI: soft, nondistended, nontender, no guarding or rebound, negative Doe's sign, no McBurney point tenderness. Back: normal ROM. Skin: warm, dry, intact, normal turgor, normal color, no rash. MS/ Extremity: normal ROM of extremities, no gross deformities. Neuro: alert and oriented with appropriate mental status, normal speech, follows commands, no focal neurologic deficits. Psych: appropriate mood and affect. Vital Signs: 20:39 BP 151 / 110; Pulse 70; Resp 18; Temp 97(TE); Pulse Ox 100% ; kd3 20:39 Weight 66.68 kg; Height 5 ft. 1 in. ; Pain 7/10; kd3 22:22 BP 137 / 84; Pulse 64; Resp 16; Pulse Ox 99% on R/A; jb4 22:52 BP 132 / 85; Pulse 58; Resp 18; Pulse Ox 100% on R/A; mf3 20:39 Body Mass Index 27.78 (66.68 kg, 154.94 cm) kd3 20:39 Pain Scale: Adult kd3 NIH Stroke Scale Scores: 21:15 NIHSS Score: 0 jb4 [place] Coma Score: 22:52 Eye Response: spontaneous(4). Motor Response: obeys commands(6). Verbal Response: mf3 oriented(5). Total: 15. MDM: 20:43 Medical Screening Exam initiated tt7 21:08 Data reviewed: vital signs, nurses notes, lab test result(s), EKG, radiologic studies. tt7 ED course: Well-appearing 58-year-old female with 2 days of headache, she went to an urgent care and reported that on neurologic exam she had some weakness to her left lower extremity, she reports her symptoms been ongoing for 2 days, she has had migraine headaches in the past but not recently, differential diagnosis includes CVA, atypical migraine, neuropraxia, electrolyte abnormality. Standard emergency department stroke workup ordered, stroke alert was not called as patient symptoms have been ongoing for 2 days so patient not a candidate for thrombolytics or thrombectomy. Will treat patient's headache with migraine medication as I think that patient's presentation is most likely due to an atypical migraine. 21:38 ED course: I independently interpreted the patient's EKG performed on 12/18/2024 at tt7 2. On my interpretation, EKG demonstrates sinus bradycardia, ventricular rate 59 bpm, normal axis, normal QRS interval, normal ST segments, no STEMI. 22:55 ED course: Overall patient's workup is very reassuring, CT imaging does not show any tt7 acute abnormalities, no flow-limiting stenosis, laboratory studies are normal, chest x-ray normal, EKG normal, I reassessed the patient, symptoms have totally resolved after IV droperidol, response to treatment and reassuring workup further supports atypical migraine is most likely diagnosis, after completion of the patient's emergency department evaluation, I do not suspect a life-threatening or disabling process. Patient is medically stable and not in need of emergent medical intervention. I had a detailed discussion with the patient and regarding the historical points, exam findings, emergency department evaluation, diagnostic results, and the discharge diagnosis. I instructed the patient on outpatient management of their condition. I discussed the need for outpatient follow-up with a primary care physician and with neurologist Dr. Samaniego whose information I have provided them. I informed the patient on return precautions, including the need to return to the ED if symptoms do not improve, worsen, or if there are any questions or concerns that arise at home. The patient was discharged in stable condition. 12/18 20:45 Order name: Basic Metabolic Panel; Complete Time: 21:40 tt7 12/18 20:45 Order name: CBC with Diff; Complete Time: 21:28 tt7 12/18 20:45 Order name: High Sensitivity Troponin; Complete Time: 21:40 tt7 12/18 20:45 Order name: Protime (+inr); Complete Time: 21:40 tt7 12/18 20:45 Order name: Ptt, Activated; Complete Time: 21:40 tt7 12/18 20:45 Order name: CT Head Angio; Complete Time: 22:24 tt7 12/18 20:45 Order name: CT Neck Angio; Complete Time: 22:24 tt7 12/18 20:45 Order name: CT Head Brain wo Cont; Complete Time: 22:24 7 12/18 20:45 Order name: CXR XRAY; Complete Time: 21:28 tt7 12/18 20:45 Order name: Cardiac monitoring; Complete Time: 21:40 tt7 12/18 20:45 Order name: EKG - Nurse/Tech; Complete Time: 21:40 tt7 12/18 20:45 Order name: IV Saline Lock; Complete Time: 21:19 tt7 12/18 20:45 Order name: Labs collected and sent; Complete Time: 21:19 tt7 12/18 20:45 Order name: O2 Per Protocol; Complete Time: 21:19 tt7 12/18 20:45 Order name: O2 Sat Monitoring; Complete Time: 21:19 tt7 Administered Medications: 21:40 Drug: Droperidol IVP 1.25 mg IVP once Route: IVP; Site: left antecubital; jb4 22:55 Follow up: Response: No adverse reaction mf3 Disposition: 12/19 00:04 Co-signature as Attending Physician, Jaime Felix DO. tt7 Disposition Summary: 12/18/24 22:26 Discharge Ordered Notes: Location: Home tt7 Problem: new tt7 Symptoms: are resolved tt7 Condition: Stable tt7 Diagnosis - Migraine without aura, not intractable tt7 Followup: tt7 - With: Emergency Department - When: As needed - Reason: Followup: tt7 - With: Martínez Samaniego MD - When: 1 - 2 days - Reason: Recheck today's complaints Discharge Instructions: - Discharge Summary Sheet tt7 - Migraine Headache, [id number] tt7 Forms: - Medication Reconciliation Form tt7 - Antibiotic Education tt7 - Prescription Opioid Use tt7 - Patient Portal Instructions tt7 - Leadership Thank You Letter tt7 NIH Stroke Scale - NIH Stroke Score Date: 12/18/2024 Time: 21:15 Total Score = 0 10. Dysarthria (speech clarity - read or repeat words) - 0(Normal) 11. Extinction and Inattention (visual/tactile/auditory/spatial/personal) - 0(No abnormality) 1a. Level of Consciousness (LOC) - 0(Alert) 1b. Level of Consciousness (LOC) (Month \T\ Age) - 0(Both) 1c. LOC Commands (Open \T\ Closes Eyes/Loan Documents Closer) - 0(Both) 2. Best Gaze (Lateral Gaze Paresis) - 0(Normal) 3. Visual Field Loss - 0(No visual loss) 4. Facial Palsy - 0(Normal) 5a. Left Arm: Motor (10-second hold) - 0(No drift) 5b. Right Arm: Motor (10-second hold) - 0(No drift) 6a. Left Leg: Motor (5-second hold - always test supine) - 0(No drift) 6b. Right Leg: Motor (5-second hold - always test supine) - 0(No drift) 7. Limb Ataxia (finger/nose \T\ heel/joseph - test with eyes open) - 0(Absent) 8. Sensory Loss (pinprick arms/legs/face) - 0(Normal) 9. Best Language: Aphasia (description/naming/reading) - 0(No aphasia) Initials: jbRj Signatures: Dispatcher [employer] ED Raf Miller, RN RN jb4 Ida Del Rio RN RN kd3 Jaime Felix, DO tt7 Leila Mercedes RN mf3 Corrections: (The following items were deleted from the chart) 12/18 20:46 20:46 BASIC METABOLIC PANEL+C.LAB.BRZ ordered. EDCT EDMS 20:46 20:46 CBC+H.LAB.BRZ ordered. EDCT EDMS 20:46 20:46 Troponin High Sensitivity+C.LAB.BRZ ordered. EDCT EDMS 20:46 20:46 PROTIME (+INR)+COAG.LAB.BRZ ordered. EDCT EDMS 20:46 20:46 PTT, ACTIVATED+COAG.LAB.BRZ ordered. EDCT EDMS 20:46 20:46 Head Angio+CT.RAD.BRZ ordered. EDCT EDCT 20:46 20:46 Neck Angio+CT.RAD.BRZ ordered. EDCT EDMS 20:46 20:46 Head Brain Wo Cont+CT.RAD.BRZ ordered. EDCT EDMS 20:46 20:46 Chest Single View+RAD.RAD.BRZ ordered. [facility] EDCT 22:15 20:45 Accucheck ordered. tt7 jb4 22:58 21:08 ED course: Well-appearing 58-year-old female with 2 days of headache, she tt7 went to an urgent care and reported that on neurologic exam she had some weakness to her left lower extremity, she reports her symptoms been ongoing for 2 days, she has had migraine headaches in the past but not recently, differential diagnosis includes CVA, atypical migraine, neuropraxia, electrolyte abnormality. Standard emergency department stroke workup ordered, stroke alert was not called as patient symptoms have been ongoing for 2 days so patient not a candidate for thrombolytics or thrombectomy. Will treat patient's headache with migraine medication as I think that patient's presentation is most likely due to an atypical migraine. tt7 12/19 00:04 12/18 21:08 ED course: Well-appearing 58-year-old female with 2 days of tt7 headache, she went to an urgent care and reported that on neurologic exam she had some weakness to her left lower extremity, she reports her symptoms been ongoing for 2 days, she has had migraine headaches in the past but not recently, differential diagnosis includes CVA, atypical migraine, neuropraxia, electrolyte abnormality. Standard emergency department stroke workup ordered, stroke alert was not called as patient symptoms have been ongoing for 2 days so patient not a candidate for thrombolytics or thrombectomy. Will treat patient's headache with migraine medication as I think that patient's presentation is most likely due to an atypical migraine. tt7
--- NOTE | 2024-12-18 22:27 | ER ---
Nurse's Notes [facility] Name: Mary Bentley Age: 58 yrs Sex: Female : 1965 Arrival Date: 12/18/2024 Time: 20:34 Bed 3 Private MD: Diagnosis: Migraine without aura, not intractable Presentation: 12/18 20:39 Chief complaint: Patient states: I have a really bad headache that goes down my ears kd3 and around my neck. I have some bumps behind my ears. I was at urgent care and they told me to come here because my left seems weaker than my right. My symptoms started two days ago. Ebola Screen: No symptoms or risks identified at this time. Risk Assessment: Do you want to hurt yourself or someone else? Patient reports no desire to harm self or others. Onset of symptoms was December 18, 2024. 20:39 Method Of Arrival: Ambulatory kd3 20:39 Acuity: SKIP 3 kd3 20:44 Coronavirus screen: Vaccine status: Patient reports receiving the 2nd dose of the covid kd3 vaccine. Initial Sepsis Screen: Does the patient meet any 2 criteria? No. Patient's initial sepsis screen is negative. Does the patient have a suspected source of infection? No. Patient's initial sepsis screen is negative. Triage Assessment: 20:43 The onset of the patients symptoms was December 16, 2024 at 17:00. General: Appears in kd3 no apparent distress. Behavior is calm, cooperative. Pain: Complains of pain in headache. Neuro: Level of Consciousness is awake, alert, obeys commands, Oriented to person, place, time, situation, Reports headache. 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 - Infectious Disease History:: Denies. - Social history:: Smoking status: Patient denies any tobacco usage or history of. Screenin:15 [facility] ED Fall Risk Assessment (Adult) History of falling in the last 3 months, jb4 including since admission No falls in past 3 months (0 pts) Confusion or Disorientation No (0 pts) Intoxicated or Sedated No (0 pts) Impaired Gait No (0 pts) Mobility Assist Device Used No (0 pt) Altered Elimination No (0 pt) Score/Fall Risk Level 0 - 2 = Low Risk Oriented to surroundings, Maintained a safe environment. Abuse screen: Denies threats or abuse. Nutritional screening: No deficits noted. Tuberculosis screening: No symptoms or risk factors identified. Assessment: 21:15 General: Appears in no apparent distress. comfortable, Behavior is calm, cooperative, jb4 appropriate for age. Pain: Complains of pain in headache Pain does not radiate. Pain currently is 7 out of 10 on a pain scale. Neuro: Level of Consciousness is awake, alert, obeys commands, Oriented to person, place, time, situation. Cardiovascular: Patient's skin is warm and dry. Respiratory: Airway is patent Respiratory effort is even, unlabored, Respiratory pattern is regular, symmetrical. Derm: Skin is intact, Skin is pink, warm \T\ dry. Musculoskeletal: Circulation, motion, and sensation intact. Range of motion: intact in all extremities. 22:22 Reassessment: Patient appears in no apparent distress at this time. Patient and/or jb4 family updated on plan of care and expected duration. Pain level reassessed. Patient is alert, oriented x 3, equal unlabored respirations, skin warm/dry/pink. Vital Signs: 20:39 BP 151 / 110; Pulse 70; Resp 18; Temp 97(TE); Pulse Ox 100% ; kd3 20:39 Weight 66.68 kg; Height 5 ft. 1 in. ; Pain 7/10; kd3 22:22 BP 137 / 84; Pulse 64; Resp 16; Pulse Ox 99% on R/A; jb4 22:52 BP 132 / 85; Pulse 58; Resp 18; Pulse Ox 100% on R/A; mf3 20:39 Body Mass Index 27.78 (66.68 kg, 154.94 cm) kd3 20:39 Pain Scale: Adult kd3 [place] Coma Score: 22:52 Eye Response: spontaneous(4). Motor Response: obeys commands(6). Verbal Response: mf3 oriented(5). Total: 15. NIH Stroke Scale Scores: 21:15 NIHSS Score: 0 4 ED Course: 20:38 Patient arrived in ED. im 20:39 Jaime Felix DO is Attending Physician. kd3 20:43 Triage completed. kd3 20:43 Arm band placed on right wrist. kd3 20:54 Raf Miller, JOSEFA is Primary Nurse. jb4 21:15 CXR XRAY In Process Unspecified. EDMS 22:00 CT Head Angio In Process Unspecified. EDMS 22:00 CT Neck Angio In Process Unspecified. EDMS 22:00 CT Head Brain wo Cont In Process Unspecified. EDMS 22:22 No provider procedures requiring assistance completed. jb4 22:25 Martínez Samaniego MD is Referral Physician. tt7 22:53 Placed in gown. Bed in low position. Call light in reach. Side rails up X2. Provided mf3 Education on: pt educated discharge. 22:53 IV discontinued, intact, bleeding controlled, No redness/swelling at site. Pressure mf3 dressing applied. Administered Medications: 21:40 Drug: Droperidol IVP 1.25 mg IVP once Route: IVP; Site: left antecubital; jb4 22:55 Follow up: Response: No adverse reaction mf3 Medication: 21:15 VIS not applicable for this client. jb4 Outcome: 22:26 Discharge ordered by . tt7 22:53 Discharged to home ambulatory, with family, mf3 22:53 Condition: stable 22:53 Discharge instructions given to patient, Instructed on discharge instructions, follow up and referral plans. Demonstrated understanding of instructions, follow-up care, medications, 22:55 Patient left the ED. mf3 NIH Stroke Scale - NIH Stroke Score Date: 12/18/2024 Time: 21:15 Total Score = 0 10. Dysarthria (speech clarity - read or repeat words) - 0(Normal) 11. Extinction and Inattention (visual/tactile/auditory/spatial/personal) - 0(No abnormality) 1a. Level of Consciousness (LOC) - 0(Alert) 1b. Level of Consciousness (LOC) (Month \T\ Age) - 0(Both) 1c. LOC Commands (Open \T\ Closes Eyes/Locksmith) - 0(Both) 2. Best Gaze (Lateral Gaze Paresis) - 0(Normal) 3. Visual Field Loss - 0(No visual loss) 4. Facial Palsy - 0(Normal) 5a. Left Arm: Motor (10-second hold) - 0(No drift) 5b. Right Arm: Motor (10-second hold) - 0(No drift) 6a. Left Leg: Motor (5-second hold - always test supine) - 0(No drift) 6b. Right Leg: Motor (5-second hold - always test supine) - 0(No drift) 7. Limb Ataxia (finger/nose \T\ heel/joseph - test with eyes open) - 0(Absent) 8. Sensory Loss (pinprick arms/legs/face) - 0(Normal) 9. Best Language: Aphasia (description/naming/reading) - 0(No aphasia) Initials: jb4 Signatures: Dispatcher [employer] EDRaf Ward, RN RN jb4 Ida Del Rio RN RN kd3 Zhanna Mccormick Mimi, RN RN mf3 Jaime Felix DO DO tt7
[2024-12-19 00:32] VITALS: TEMP 97
[2024-12-19 00:35] VITALS: BP 132/85; O2SAT 100
== END 2024-12-18 22:55 | disposition home or self-care (01) ==
LOC: ER 20:34
DX: G43.009 Migraine without aura, not intractable, without status migrainosus (principal)
CPT/HCPCS: 93005; 85025; 80048; 36415; 85610; 85730; 84484; 70450; 70496; 70498; 71045; 96374; 99284; Q9967; J1790